=== PATIENT | male | born 1940 | race Caucasian/White ===

== ENCOUNTER 2018-07-07 04:53 | Emergency (ER) | payer OTHER ==
[~2018-07-07] VITALS: Ht 180.3 cm; Wt 74.0 kg
[~2018-07-07 04:53] MED LIST: HALDOL5 MG PO
[2018-07-07 05:31] LABS: HEMATOCRIT 40.4 % (38.0-50.0); HEMOGLOBIN 13.7 G/DL (12.5-16.6); MCH 28.6 PG (29.0-34.0); MCHC 33.9 G/DL (30.0-36.0); MCV 84.3 FL (86-99); RBC DIS.WIDTH-CV 14.5 % (11.8-14.6); RBC DIS.WIDTH-SD 44.4 % (39-53); RED BLOOD COUNT 4.79 M/uL (4.00-5.50); WHITE BLOOD COUNT 7.7 K/uL (4.1-10.2)
[2018-07-07 05:32] LABS: PLATELET COUNT 123 K/uL (156-360)
[2018-07-07 05:34] LABS: APPEARANCE CLEAR ((CLEAR)); BILIRUBIN SMALL; BLOOD NEGATIVE; COLOR AMBER ((YELLOW)); GLUCOSE (STRIP) 50; KETONES NEGATIVE; LEUKOCYTES NEGATIVE; NITRITE NEGATIVE; PROTEIN (STRIP) 100; SPECIFIC GRAVITY 1.025 (1.000-1.030)
[2018-07-07 05:36] LABS: ALBUMIN 3.8 g/dL (3.2-4.8)
[2018-07-07 05:37] LABS: CHLORIDE 98 mEq/L (99-109); POTASSIUM 3.9 mEq/L (3.7-5.4); SODIUM 136 mEq/L (136-147)
[2018-07-07 05:39] LABS: GLUCOSE 97 mg/dL (70-99); TOTAL PROTEIN 6.2 g/dL (6.4-8.3)
[2018-07-07 05:41] LABS: TOTAL BILIRUBIN 5.3 mg/dL (0.0-1.0)
[2018-07-07 05:42] LABS: ALKALINE PHOSPHATASE 242 IU/L (3-129)
[2018-07-07 05:43] LABS: GFR ESTIMATE (CALCULATED) 35 mL/min/ (58.99-99999)
[2018-07-07 05:44] LABS: AST (GOT) 173 IU/L (2-34)
[2018-07-07 05:45] LABS: UREA NITROGEN (BUN) 40 mg/dL (9-23)
[2018-07-07 05:46] LABS: ALT (GPT) 182 IU/L (3-49)
[2018-07-07 05:47] LABS: BACTERIA NONE SEEN /HPF; EPITHELIAL CELLS RARE /HPF; HYALINE CASTS 0-5 /LPF; MUCUS NONE SEEN /LPF; RED BLOOD CELLS 0-5 /HPF (0-5); UCUL ADDED? YES
[2018-07-07 05:51] LABS: TROP-I INTERPRETATION NEGATIVE; TROPONIN-I 0.18 ng/mL (0.0-0.30)
[2018-07-07 06:14] LABS: INTER. NORMALIZED RATIO 1.6
[2018-07-07 06:17] LABS: PTT 29.3 SEC (25-37)
[2018-07-07 06:26] LABS: LIPASE 18 U/L (1.0-51.0)
[2018-07-07 06:33] LABS: ABS NEUTROPHIL COUNT 6.4; ANISOCYTOSIS 1+; EOSINOPHIL ABS CT 0.1; EOSINOPHILS 0.9 % (0-5.0); LYMPHOCYTES 1.8 % (15.0-45.0); METAMYELOCYTES 11.4 %; MICROCYTOSIS 1+; MYELOCYTES 2.6 %; SEG.NEUTROPHILS 62.3 % (46.0-76.0)
[2018-07-07] MEDS ORDERED: LOW DOSE ASPIRI81 M1 PO (10:05)
[2018-07-07] MEDS ORDERED: NORVASC10 MG PO (10:05)
[2018-07-07] MEDS ORDERED: WELLBUTRIN100 MG PO (10:06)
[2018-07-07] MEDS ORDERED: DALIRESP500 MCG PO (10:06)
[2018-07-07] MEDS ORDERED: COLACE100 MG PO (10:07)
[2018-07-07] MEDS ORDERED: ATIVAN1 MG PO (10:08)
[2018-07-07] MEDS ORDERED: GLUCOPHAGE500 MG PO (10:09)
[2018-07-07] MEDS ORDERED: SEROQUEL50 MG PO (10:16)
[2018-07-07] MEDS ORDERED: DESYREL100 MG PO (10:16)
[2018-07-07] MEDS ORDERED: OMEPRAZOLE40 M1 PO (10:17)
[2018-07-07] MEDS ORDERED: TYLENOL REGULA325 MG PO (10:17)
[2018-07-07] MEDS ORDERED: PROVENTIL,2.5 MG/3 M IH (10:18)
[2018-07-07] MEDS ORDERED: COUGH SYRU100 MG/5 M PO (10:19)
[2018-07-07] MEDS ORDERED: TUMS500 MG PO (10:21)
[2018-07-07 11:47] VITALS: BP 102/55
== END 2018-07-07 11:40 | disposition short-term general hospital (02) ==
LOC: EME → EDBD 04:53 → EME 11:40
PROVIDERS: Emergency Medicine
PROC: 05HM33Z Insertion of Infusion Device into Right Internal Jugular Vein, Percutaneous Approach (ICD-10-PCS; principal; 2018-07-07)
DX: R65.21 Severe sepsis with septic shock (principal); K83.0 Cholangitis; R00.0 Tachycardia, unspecified; R94.31 Abnormal electrocardiogram [ECG] [EKG]; K80.70 Calculus of gallbladder and bile duct without cholecystitis without obstruction; R29.6 Repeated falls; G30.9 Alzheimer's disease, unspecified; F02.80 Dementia in other diseases classified elsewhere, unspecified severity, without behavioral disturbance, psychotic disturbance, mood disturbance, and anxiety; Z87.891 Personal history of nicotine dependence
CPT/HCPCS: 70450; 71045; 72125; 74176; 80053; 81003; 83605; 83690; 83880; 84484; 85025; 85610; 85730; 87040; 87077; 87086; 87186; 87801; 93005; 99281; 99285; C1751; J2060; J2250; J2270; J2405; J2543; J3370; J7030